=== PATIENT | male | born 1965 | race Caucasian/White ===

== ENCOUNTER 2022-02-12 16:14 | Emergency (ER) | payer OTHER ==
[~2022-02-12] VITALS: Ht 182.8 cm; Wt 120.2 kg
[2022-02-12 16:49] LABS: BASO # 0.1 10*3/uL (0.0-0.1); BASO % 0.5 % (0.0-1.0); EOS % 0.1 % (1.0-4.0); HEMATOCRIT 44.6 % (42.0-52.0); LYMPH # 1.1 10*3/uL (1.3-4.4); LYMPH % 9.2 % (27.0-41.0); MEAN CELL VOLUME 86.1 fl (80.0-94.0); MEAN CORPUSCULAR HGB 29.5 pg (27.0-31.0); MEAN CORPUSCULAR HGB CONC 34.3 g/dl (33.0-37.0); MEAN PLATELET VOLUME 11.4 fl (9.6-12.3); MONO # 0.8 10*3/uL (0.1-1.0); MONO % 6.7 % (3.0-9.0); NEUT # 9.9 10*3/uL (2.3-7.9); NEUT % 82.7 % (47.0-73.0); PLATELET COUNT AUTOMATED 211 10*3/uL (130-400); RED BLOOD COUNT 5.18 10*6/uL (4.50-5.90); RED CELL DISTRI WIDTH 13.2 % (0-14.5)
[2022-02-12 16:59] LABS: ACT PARTIAL THROMBO TIME 28.3 SECONDS (20.0-32.1)
[2022-02-12 17:06] LABS: ALKALINE PHOSPHATASE 103 U/L (45-117); BUN 14 mg/dl (7-24); CHLORIDE 101 mmol/L (98-107); CREATININE 1.33 mg/dL (0.70-1.30); POTASSIUM 3.9 mmol/L (3.5-5.1); SGOT/AST 28 IU/L (3-35); SGPT/ALT 35 U/L (12-78); SODIUM 131 mmol/L (136-145); TOTAL PROTEIN 7.5 gm/dL (6.4-8.2)
[2022-02-12] MEDS ORDERED: VIBRA-TAB100 MG PO (18:35)
== END 2022-02-12 19:21 | disposition home or self-care (01) ==
LOC: ED 16:14 → EDSEX 16:32 → ED 16:32
PROVIDERS: Emergency Medicine
DX: L03.116 Cellulitis of left lower limb (principal)

== ENCOUNTER 2022-02-24 16:39 | Emergency (ER) | payer OTHER ==
[~2022-02-24] VITALS: Ht 182.8 cm; Wt 117.9 kg
[~2022-02-24 16:39] MED LIST: VIBRA-TAB100 MG PO
[2022-02-24] MEDS ORDERED: SEPTDS PO (19:16)
== END 2022-02-24 19:47 | disposition home or self-care (01) ==
LOC: ED 16:39
DX: L03.116 Cellulitis of left lower limb (principal); Z88.6 Allergy status to analgesic agent